=== PATIENT | female | born 1945 | race Two or more races ===

== ENCOUNTER 2017-07-23 10:35 | Outpatient (CLI) | payer OTHER ==
[~2017-07-23 10:35] MED LIST: AMBIEN10 MG; SYNTHROID88 MCG; VASOTEC5 MG
== END 2017-07-23 10:41 | disposition home or self-care (01) ==
LOC: SONOGRAMA 10:35
DX: E04.1 Nontoxic single thyroid nodule (principal)

== ENCOUNTER 2025-01-20 10:57 | Outpatient (CLI) | payer OTHER ==
[2025-01-20 12:16] LABS: BASO % 0.7 % (0.1-1.2); EOS # 0.09 (0.04-0.54); EOS % 2.1 % (0.7-7.0); HEMATOCRIT 30.2 % (34.1-44.9); HEMOGLOBIN 10.4 g/dL (11.2-15.7); LYMPH # 1.32 (1.18-3.74); LYMPH % 30.1 % (19.3-53.1); MEAN CORPUSCULAR HEMOGLOBIN 32.8 pg (25.6-32.2); MONO # 0.42 (0.24-0.82); MONO % 9.6 % (4.7-12.5); NEUT # 2.51 (1.56-6.13); PLATELET COUNT 326 K/uL (163-369); RED BLOOD COUNT 3.17 M/uL (3.93-5.22); RED CELL DISTRIBUTION WIDTH 13.5 % (11.6-14.4)
[2025-01-20 12:57] LABS: % SATURACION 43.6 % (15-50); ALBUMIN 3.5 gm/dL (3.4-5.0); BILIRUBIN TOTAL 0.49 mg/dL (0.3-1.2); CALCIUM 8.8 mg/dL (8.5-10.1); CREATININE SERUM 0.75 mg/dL (0.55-1.02); FERRITIN 182.5 NG/ML (8-252); GFR 74.73; GLOBULINA 3.3 G/DL (2.4-3.5); POTASSIUM 4.9 mEq/L (3.5-5.1); T4 FREE 1.43 NG/ML (0.76-1.46); TOTAL PROTEIN 6.8 gm/dL (6.4-8.2); TSH 1.2 uIU/mL (0.358-3.74)
[2025-01-20 13:03] LABS: FOLIC ACID 16.15 ng/ml (4.78-20)
== END 2025-01-20 11:07 | disposition home or self-care (01) ==
LOC: LAB 10:57
PROVIDERS: ATTEND Internal Medicine Hematology & Oncology
DX: D50.8 Other iron deficiency anemias (principal); I10 Essential (primary) hypertension; R74.02 Elevation of levels of lactic acid dehydrogenase [LDH]; K76.89 Other specified diseases of liver; R79.9 Abnormal finding of blood chemistry, unspecified; D63.8 Anemia in other chronic diseases classified elsewhere; D55.0 Anemia due to glucose-6-phosphate dehydrogenase [G6PD] deficiency; D52.9 Folate deficiency anemia, unspecified; D51.1 Vitamin B12 deficiency anemia due to selective vitamin B12 malabsorption with proteinuria; D51.0 Vitamin B12 deficiency anemia due to intrinsic factor deficiency; E03.8 Other specified hypothyroidism; E06.3 Autoimmune thyroiditis; R97.0 Elevated carcinoembryonic antigen [CEA]; R97.8 Other abnormal tumor markers; D47.2 Monoclonal gammopathy

== ENCOUNTER 2025-06-27 11:44 | Outpatient (CLI) | payer OTHER ==
[2025-06-27 12:50] LABS: BASO % 1.0 % (0.1-1.2); EOS # 0.26 (0.04-0.54); EOS % 6.3 % (0.7-7.0); LYMPH # 1.36 (1.18-3.74); LYMPH % 32.9 % (19.3-53.1); MEAN PLATELET VOLUME 10.70 fl (9.4-12.4); MONO # 0.37 (0.24-0.82); MONO % 9.0 % (4.7-12.5); NEUT # 2.10 (1.56-6.13); NEUT % 50.8 % (34.0-71.1); RED CELL DISTRIBUTION WIDTH 15.3 % (11.6-14.4)
[2025-06-27 13:30] LABS: ALT/SGPT 22.0 U/L (12-78); AST/SGOT 21.0 U/L (15-37); BILIRUBIN TOTAL 0.6 mg/dL (0.3-1.2); BUN CREA RATIO 26.0 (7.0-25.0); CREATININE SERUM 0.77 mg/dL (0.55-1.02); GFR 72.31; GLOBULINA 3.5 G/DL (2.4-3.5); GLUCOSE FASTING 84.0 mg/dL (65-100); LDH 188.0 U/L (84-246); OSMOLALITY SERUM 281.0 MOSM/KG (275-295)
[2025-06-29 10:07] LABS: CA 125 6.9 U/mL (0.0-38.1); CA 15-3 21.7 U/mL (0.0-25.0); CA 19-9 5 U/mL (0-35)
[2025-06-29 16:11] LABS: kappa lambda r 1.18 (0.26-1.65); kappa light 23.9 mg/L (3.3-19.4)
== END 2025-06-27 11:52 | disposition home or self-care (01) ==
LOC: LAB 11:44
PROVIDERS: ATTEND Internal Medicine Hematology & Oncology
DX: D47.2 Monoclonal gammopathy (principal); D51.3 Other dietary vitamin B12 deficiency anemia; E03.8 Other specified hypothyroidism; Z80.3 Family history of malignant neoplasm of breast; I10 Essential (primary) hypertension; E06.3 Autoimmune thyroiditis; Z86.0100 Personal history of colon polyps, unspecified; D50.8 Other iron deficiency anemias; R74.02 Elevation of levels of lactic acid dehydrogenase [LDH]; K76.89 Other specified diseases of liver; C50.919 Malignant neoplasm of unspecified site of unspecified female breast; C25.9 Malignant neoplasm of pancreas, unspecified; C56.9 Malignant neoplasm of unspecified ovary; D47.9 Neoplasm of uncertain behavior of lymphoid, hematopoietic and related tissue, unspecified

== ENCOUNTER 2025-07-17 10:31 | Outpatient (CLI) | payer OTHER | END 2025-07-17 10:36 | disposition home or self-care (01) | LOC: TOM 10:31 | PROVIDERS: ATTEND Internal Medicine Hematology & Oncology | DX: D47.2 Monoclonal gammopathy (principal); D51.3 Other dietary vitamin B12 deficiency anemia; E03.8 Other specified hypothyroidism; Z80.3 Family history of malignant neoplasm of breast; I10 Essential (primary) hypertension; E06.3 Autoimmune thyroiditis; Z86.0100 Personal history of colon polyps, unspecified | CPT/HCPCS: 71270; 74178; Q9965 ==

== ENCOUNTER 2025-07-25 13:50 | Outpatient (CLI) | payer OTHER ==
[2025-07-25 14:29] LABS: BASO % 0.6 % (0.1-1.2); EOS # 0.19 (0.04-0.54); EOS % 3.6 % (0.7-7.0); LYMPH # 1.27 (1.18-3.74); LYMPH % 24.1 % (19.3-53.1); MEAN PLATELET VOLUME 10.10 fl (9.4-12.4); MONO # 0.60 (0.24-0.82); MONO % 11.4 % (4.7-12.5); NEUT # 3.15 (1.56-6.13); NEUT % 59.9 % (34.0-71.1); RED CELL DISTRIBUTION WIDTH 14.9 % (11.6-14.4)
[2025-07-25 14:49] LABS: % SATURACION 28.5 % (15-50); ALT/SGPT 23.0 U/L (12-78); AST/SGOT 18.0 U/L (15-37); BILIRUBIN TOTAL 0.63 mg/dL (0.3-1.2); BUN CREA RATIO 28.0 (7.0-25.0); CREATININE SERUM 0.75 mg/dL (0.55-1.02); FE 96.0 ug/dl (50-170); GFR 74.54; GLOBULINA 4.0 G/DL (2.4-3.5); GLUCOSE FASTING 106.0 mg/dL (65-100); LDH 212.0 U/L (84-246); OSMOLALITY SERUM 285.0 MOSM/KG (275-295)
[2025-07-25 15:31] LABS: FOLIC ACID 15.12 ng/ml (4.78-20)
== END 2025-07-25 13:57 | disposition home or self-care (01) ==
LOC: LAB 13:50
PROVIDERS: ATTEND Internal Medicine Hematology & Oncology
DX: D50.8 Other iron deficiency anemias (principal); I10 Essential (primary) hypertension; R74.02 Elevation of levels of lactic acid dehydrogenase [LDH]; K76.89 Other specified diseases of liver; D51.3 Other dietary vitamin B12 deficiency anemia; D52.9 Folate deficiency anemia, unspecified; R97.0 Elevated carcinoembryonic antigen [CEA]; R97.8 Other abnormal tumor markers; D47.2 Monoclonal gammopathy; E03.8 Other specified hypothyroidism; Z80.3 Family history of malignant neoplasm of breast; E06.3 Autoimmune thyroiditis; Z86.0100 Personal history of colon polyps, unspecified

== ENCOUNTER → 2025-07-25 | Emergency (ER) | payer OTHER ==
[~2025-07-25] VITALS: Ht 154.9 cm; Wt 59.0 kg
[~2025-07-25] MED LIST changes: +LOSARTAN POTASS25 MG PO
== END | disposition home or self-care (01) ==
LOC: ER 09:04
DX: S01.81XA Laceration without foreign body of other part of head, initial encounter (principal); W19.XXXA Unspecified fall, initial encounter; Y93.89 Activity, other specified; Y92.89 Other specified places as the place of occurrence of the external cause; Y99.8 Other external cause status; G89.11 Acute pain due to trauma; M25.562 Pain in left knee; M25.512 Pain in left shoulder; E03.8 Other specified hypothyroidism